=== PATIENT | female | born 1975 | race Caucasian/White ===

== ENCOUNTER → 2018-11-02 | Outpatient (CLI) | payer BC ==
--- NOTE | 2018-11-05 10:24 | MM ---
Reason for exam: screening (asymptomatic). Last mammogram was performed 2 years and 6 months ago. History: Took hormonal contraceptives for 5 years. Physical Findings: A clinical breast exam by your physician is recommended on an annual basis and results should be correlated with mammographic findings. MG 3D Screening Mammo W/Cad Bilateral CC, MLO, and XCCL view(s) were taken. Prior study comparison: April 24, 2016, bilateral MG screening mammo w CAD. November 01, 2014, bilateral MG screening mammo w CAD. The breast tissue is heterogeneously dense. This may lower the sensitivity of mammography. There is chronic nodularity in the right breast. No significant changes when compared with prior studies. ASSESSMENT: Negative, BI-RAD 1 RECOMMENDATION: Routine screening mammogram of both breasts in 1 year.
== END | disposition home or self-care (01) ==
LOC: RADMAMWWP 09:57
PROVIDERS: ATTEND Obstetrics & Gynecology
DX: Z12.31 Encounter for screening mammogram for malignant neoplasm of breast (principal)
CPT/HCPCS: 77063; 77067

== ENCOUNTER → 2019-10-04 | Outpatient (CLI) | payer BC ==
--- NOTE | 2019-10-05 09:09 | US ---
EXAMINATION TYPE: US pelvis complete transvag DATE OF EXAM: 10/04/2019 COMPARISON: NONE CLINICAL HISTORY: N93.8 abnormal uterine and vaginal bleeding. Abnormal bleeding TECHNIQUE: Transvaginal (TV) and Transabdominal (TA) . Transabdominal sonographic images of the pelvis were acquired. Transvaginal sonographic images were medically necessary to better assess the following anatomy: Uterus and ovaries. EXAM MEASUREMENTS: Uterus: 9.6 x 4.2 x 5.1 cm Endometrial Stripe: .6 cm Left Ovary: 3.8 x 2.3 x 2.4 cm 1. Uterus: Anteverted Fibroid visualized 4.1 x 4.0 x 3.7 cm. 2. Endometrium: wnl 3. Right Ovary: Obscured by overlying bowel gas 4. Left Ovary: Cystic area seen 2.2 x 1.8 x 2.0 cm. 5. Bilateral Adnexa: Right side fluid visualized question possible fallopian tubes. 6. Posterior cul-de-sac: wnl Heterogeneous anteverted uterus with poorly visualized endometrium that is not suspiciously thickened. Focal subserosal 3.7 cm fibroid some shadowing is noted towards the fundus. No free fluid in cul-de-sac. Left ovary is seen seen with 2.2 cm prominent follicle or simple-appearing thin-walled cyst left ovary. Right ovary not clearly identified with prominent tubular shaped structure could reflect hydrosalpinx. IMPRESSION: Uterine fibroid disease spell present. Tortuous tubular shaped structure right adnexa is suspicious for hydrosalpinx, consider further workup if there is localized right pelvic pain. MTDD
== END | disposition home or self-care (01) ==
LOC: RADUSWWP 16:26
PROVIDERS: ATTEND Obstetrics & Gynecology
DX: D25.9 Leiomyoma of uterus, unspecified (principal); R93.89 Abnormal findings on diagnostic imaging of other specified body structures
CPT/HCPCS: 76830; 76856

== ENCOUNTER → 2019-12-14 | Outpatient (CLI) | payer BC ==
--- NOTE | 2019-12-15 11:32 | MM ---
Reason for exam: screening (asymptomatic). Last mammogram was performed 1 year and 1 month ago. History: Took hormonal contraceptives for 5 years. Physical Findings: A clinical breast exam by your physician is recommended on an annual basis and results should be correlated with mammographic findings. MG 3D Screening Mammo W/Cad Bilateral CC and MLO view(s) were taken. XCCL view(s) were taken of the right breast. Prior study comparison: November 02, 2018, bilateral MG 3d screening mammo w/cad. April 24, 2016, bilateral MG screening mammo w CAD. The breast tissue is heterogeneously dense. This may lower the sensitivity of mammography. No significant changes when compared with prior studies. ASSESSMENT: Benign, BI-RAD 2 RECOMMENDATION: Routine screening mammogram of both breasts in 1 year.
== END | disposition home or self-care (01) ==
LOC: RADMAMWWP 16:15
PROVIDERS: ATTEND Obstetrics & Gynecology
DX: Z12.31 Encounter for screening mammogram for malignant neoplasm of breast (principal)
CPT/HCPCS: 77063; 77067

== ENCOUNTER → 2020-12-28 | Outpatient (CLI) | payer BC ==
--- NOTE | 2021-01-01 09:54 | MM ---
Reason for exam: screening (asymptomatic). Last mammogram was performed 1 year ago. History: Took hormonal contraceptives for 5 years. Physical Findings: A clinical breast exam by your physician is recommended on an annual basis and results should be correlated with mammographic findings. MG 3D Screening Mammo W/Cad Bilateral CC and MLO view(s) were taken. Prior study comparison: December 14, 2019, bilateral MG 3d screening mammo w/cad. November 02, 2018, bilateral MG 3d screening mammo w/cad. The breast tissue is heterogeneously dense. This may lower the sensitivity of mammography. No significant changes when compared with prior studies. ASSESSMENT: Benign, BI-RAD 2 RECOMMENDATION: Routine screening mammogram of both breasts in 1 year.
== END | disposition home or self-care (01) ==
LOC: RADMAMWWP 16:11
PROVIDERS: ATTEND Obstetrics & Gynecology
DX: Z12.31 Encounter for screening mammogram for malignant neoplasm of breast (principal)
CPT/HCPCS: 77063; 77067

== ENCOUNTER → 2023-09-03 | Outpatient (CLI) | payer BC ==
--- NOTE | 2023-09-03 15:42 | P.SLEEP ---
History of Present Illness DATE: 09/03/2023 CONSULTATION/NEW PATIENT EVALUATION HISTORY OF PRESENT ILLNESS/SLEEP-WAKE EVALUATION: 48-year-old lady had been ev aluated in the sleep center for excessive daytime sleepiness and possible obstructive sleep apnea hypopnea syndrome. SLEEP SCHEDULE: Usually sleep schedule from 10 PM to 6 AM on weekdays and from 10 PM to 7 AM on weekend. FALLING ASLEEP: Usually no problems with falling asleep. DURING SLEEP: Patient snores and may occasionally wakes up from sleep No history of hypnogogical hallucinations, sleep paralysis, or cataplexy. DURING THE DAY/WAKE STATE: In the morning patient wake up tired, has difficulties with concentration. [place] sleepiness scale is increased to 10. Patient does not take naps during the day because she is busy and working, but in the evening sometimes falling asleep in front of TV and possibly would be able to fall asleep during the day she will have opportunity to do it. PAST MEDICAL HISTORY: Back problems, hypothyroidism, sinuses problems. PAST SURGICAL HISTORY: None. MEDICATIONS: Levothyroxine 100 g once a day, control pills. SOCIAL HISTORY: Positive history of short smoking in the past, quit 25 years ago, alcohol consumption occasional. FAMILY HISTORY: Positive for sleep apnea, hypertension, sinuses problems, restless legs. REVIEW OF SYSTEMS: Snoring, feeling tiredness and sleepiness during the day. No fevers. No double vision. No recent chest pain. No shortness of breath. No abdominal pain. No bleeding episodes. No blood in urine. No seizure episodes. PHYSICAL EXAMINATION: GENERAL: A pleasant patient without any distress. VITAL SIGNS: BP 119/82, HR 80, RR 16, weight 227.2 pounds, height 6 foot 1.5 inches, body mass index 29.5. HEENT: PERRLA, EOMI. Evaluation of oropharynx showed tongue protrudes midline, low position of soft palate Mallampati 3. NECK: Supple. No JVD. Thyroid is not palpable. 16.5 inches in circumference. LUNGS: Clear to percussion and to auscultation. Good air exchange. No wheezing or rhonchi. HEART: S1, S2 regular. No murmurs, gallops or rubs. ABDOMEN: Soft and nontender. Bowel sounds are present. No organomegaly appreciated. EXTREMITIES: No clubbing or cyanosis. SHAPE CARVER: Awake, alert, and oriented x3. Cranial nerves 2 to 7 intact. There is no fasciculation or atrophy noted. No focal deficits observed. ASSESSMENT: 1. Snoring, low position of soft palate Mallampati 3, white neck 16.5 inches in circumference, sleepiness. Obstructive sleep apnea hypopnea syndrome. 2. Hypothyroidism. 3. Back problems. 4. Sinuses problems. PLAN: 1. Home sleep apnea test for evaluation of patient's breathing during sleep. 2. Following plan after reading sleep study. We may consider multiple sleep latency test if sleep study is negative for OMARI. 3. Preferable position during sleep on the side. 4. No driving if patient feels any sleepiness. Patient is aware of civil and criminal liability for unsafe driving. 5. Sleep hygiene with regular sleep time for at least 7.5-8 hours. 6. Watching weight. Thank you very much for referring this patient for consultation. Sincerely, Milton Apple MD, PhD, FAASM. Diplomat of [place] [employer], Sleep Medicine Board by [place] [employer] [place] [employer] Motor Scooter Repairer of [facility] [place] Sleep Note - Sleep Note Sleep Note: Temperature: Pulse Rate: Respiratory Rate: Blood Pressure: SpO2: Height: Weight: BMI: Neck Circumference:
== END ==
LOC: 3 N SLEEP 14:59
PROVIDERS: ATTEND Internal Medicine
DX: G47.33 Obstructive sleep apnea (adult) (pediatric) (principal); E03.9 Hypothyroidism, unspecified; M51.9 Unspecified thoracic, thoracolumbar and lumbosacral intervertebral disc disorder; J34.89 Other specified disorders of nose and nasal sinuses; Z87.891 Personal history of nicotine dependence; Z79.890 Hormone replacement therapy
CPT/HCPCS: 99211

== ENCOUNTER → 2023-09-19 | Outpatient (CLI) | payer BC | LOC: 3 N SLEEP 13:00 | PROVIDERS: ATTEND Internal Medicine | DX: G47.33 Obstructive sleep apnea (adult) (pediatric) (principal) ==

== ENCOUNTER → 2023-11-20 | Outpatient (CLI) | payer BC ==
--- NOTE | 2023-11-20 18:50 | P.PN ---
Subjective DATE: 11/20/2023 FOLLOW UP VISIT. Patient with obstructive sleep apnea hypopnea syndrome return to sleep center for follow-up visit. Recently patient had sleep study which documented obstructive sleep apnea hypopnea syndrome. Patient was initiated on PAP therapy and today is first visit after treatment was started. Patient was able to use PAP equipment every night for the whole night. Patient has difficulties with using CPAP equipment. Presently she is using nasal mask. [place] sleepiness scale is increased to 11. I checked information from PAP unit. PAP unit pressure 5-14, average 10.6 cm H2O. Usage is 20% and 17 % for more then 4 hours, average 4.8 hours per night. Leak is 3.0 l/m, which is in acceptable range. Apnea Hypopnea Index is slightly increased to 7.4l. MEDICATIONS:1. Levothyroxine 100 g once a day During physical exam: GENERAL: A pleasant patient without any distress. VITAL SIGNS: BP 129/88, HR 76, RR 16, weight 234, temperature 98.1, oxygen saturation at room air 99%. HEENT: PERRLA, EOMI.low position of soft palate, Mallapati 3 . NECK: Supple. No JVD. LUNGS: Clear to percussion and to auscultation. Good air exchange. No wheezing or rhonchi. HEART: S1, S2 regular. ABDOMEN: Soft and nontender.[] EXTREMITIES: No clubbing or cyanosis. SCALE MECHANIC: Awake, alert, and oriented x3. No focal deficit. Impressions: 1. Obstructive sleep apnea-hypopnea syndrome. Patient has difficulties with usage CPAP equipment. Patient feels that mask is not comfortable for her. 2. Hypothyroidism. 3. Sinusitis problems. 4. Back problems. Plan: 1. Continue using PAP equipment every night for the whole night. 2. To change air filter at least 1-2 times per month. 3. PAP unit should stay lower then position of the head. 4. Advised patient to remove all remaining water from humidifier canister daily and make it dry after each usage. Refill canister with fresh distilled water before each usage. 5. Sleep hygiene with regular time in bed for at least 8 hours. 6. Precautions related to driving. No driving if feel any sleepiness. 7. Prescription for trial with nasal pillow mask. 8. Follow up visit in 2 months or earlier if patient has any problems. 9. Watching weight. Thank you very much for allowing me to participate in the management of your patient. Milton Apple MD, PhD, FAASM. Diplomat of [place] [employer], Sleep Medicine Board by [place] [employer] Serologist of [facility] [place]
== END ==
LOC: 3 N SLEEP 16:25
PROVIDERS: ATTEND Internal Medicine
DX: G47.33 Obstructive sleep apnea (adult) (pediatric) (principal); E03.9 Hypothyroidism, unspecified; J32.9 Chronic sinusitis, unspecified; Z79.890 Hormone replacement therapy; Z99.89 Dependence on other enabling machines and devices
CPT/HCPCS: 99212

== ENCOUNTER → 2024-01-09 | Outpatient (CLI) | payer BC ==
--- NOTE | 2024-01-12 20:19 | MM ---
Reason for Exam: Screening (asymptomatic). Last mammogram was performed 1 year(s) and 11 month(s) ago. Patient History: Menarche at age 10. First Full-Term at age 21. Perimenopausal. Currently using Hormonal Contraceptives, for 5 years. Risk Values: Myrtle 5 year model risk: 0.9%. NCI Lifetime model risk: 8.0%. Prior Study Comparison: 12/14/2019 Bilateral Screening Mammogram, [facility]. 12/28/2020 Bilateral Screening Mammogram, [facility]. 02/07/2022 Bilateral Screening Mammogram, [facility]. Tissue Density: The breasts are heterogeneously dense, which may obscure small masses. Findings: Analyzed By CAD. There is no suspicious group of microcalcifications or new suspicious mass in either breast. Overall Assessment: Negative, BI-RAD 1 Management: Screening Mammogram of both breasts in 1 year. . Patient should continue monthly self-breast exams. A clinical breast exam by your physician is recommended on an annual basis. This exam should not preclude additional follow-up of suspicious palpable abnormalities. Note on Myrtle scores and lifetime risk: 1. A Myrtle score greater than 3% is considered moderate risk. If this is the case, consider specialist referral to assess eligibility for a risk reducing agent. 2. If overall lifetime risk for the development of breast cancer is 20% or higher, the patient may qualify for future screening with alternating mammogram and breast MRI. Electronically signed and approved by: Saul Grimm M.D. Radiologist
== END | disposition home or self-care (01) ==
LOC: RADMAMWWP 10:36
PROVIDERS: ATTEND Obstetrics & Gynecology
DX: Z12.31 Encounter for screening mammogram for malignant neoplasm of breast (principal)
CPT/HCPCS: 77063; 77067

== ENCOUNTER → 2024-07-29 | Outpatient (CLI) | payer BC ==
[2024-07-29 16:48] VITALS: BP 136/89; PULSE 67; RESP 12; TEMP 98
--- NOTE | 2024-07-29 17:46 | P.PROGSL ---
Subjective DATE: 07/29/2024 FOLLOW UP VISIT. Patient returned to sleep center for follow-up visit. Patient had been diagnosed with obstructive sleep apnea hypopnea syndrome by home sleep apnea test. Patient tried to use CPAP equipment but she has difficulties related to the mask, pressure and cannot use CPAP equipment. She came to discuss other possible options for treatment of obstructive sleep apnea hypopnea syndrome. [place] sleepiness scale is increased to 13 today. I discussed with patient in details other options for treatment of obstructive sleep apnea hypopnea syndrome including oral appliances, surgical treatment, using inspire electrical stimulator, losing weight. MEDICATIONS: Please see below During physical exam: GENERAL: A pleasant patient without any distress. VITAL SIGNS: Please see below. HEENT: PERRLA, EOMI. retrognathia several millimeters, extremely low position of soft palate Mallampati 3. NECK: Supple. No JVD. LUNGS: Clear to percussion and to auscultation. Good air exchange. No wheezing or rhonchi. HEART: S1, S2 regular. ABDOMEN: Soft and nontender. EXTREMITIES: No clubbing or cyanosis. STEAMBLASTER: Awake, alert, and oriented x3. No focal deficit. Impressions: 1. Obstructive sleep apnea hypopnea syndrome in mild range. Patient present with symptoms of excessive daytime sleepiness. [place] Sleepiness Scale increased to 13 today. Patient cannot tolerate CPAP treatment 2. Hypothyroidism. 3. History of sinusitis. 4. Back problems. 5. Mild obesity, BMI 30.3. Plan: 1. Patient was recommended to see dentist to start treatment of mild obstructive sleep apnea with oral appliances. 2. Sleep hygiene with regular time in bed for at least 8 hours. 3. Precautions related to driving. No driving if feel any sleepiness. Patient is aware about civil and criminal liability for unsafe driving, promised to follow recommendations. 4. Follow-up visit after patient will be started on treatment with oral appl iances repeat home sleep apnea test for evaluation of effectivity of treatment with oral appliances. 5. Watching and losing weight. Thank you very much for allowing me to participate in the management of your patient. Milton Apple MD, PhD, FAASM. Diplomat of [place] [employer], Sleep Medicine Board by [place] [employer] Master Black Belt of [facility] Objective - Vital Signs Vital Signs: Vital Signs Temp 98.0 F 07/29/24 16:47 Pulse 67 07/29/24 16:47 Resp 12 07/29/24 16:47 BP 136/89 07/29/24 16:47 Pulse Ox 97 07/29/24 16:47 FiO2 Intake & Output 07/28/24 07/29/24 07/29/24 18:59 06:59 18:59 Weight 107.161 kg
== END ==
LOC: 3 N SLEEP 16:03
PROVIDERS: ATTEND Internal Medicine
CPT/HCPCS: 99212

== ENCOUNTER → 2025-01-07 | Outpatient (CLI) | payer BC ==
--- NOTE | 2025-01-12 15:36 | P.PCN ---
Description of Procedure: CLINICAL: A home sleep apnea test has been done for confirmation of possible obstructive sleep apnea-hypopnea syndrome. DESCRIPTION OF PROCEDURE: RESULTS: Recording time was 8 hours 4 minutes. Evaluation time was 7 hours 52 minutes. Evaluation time is sufficient for making conclusion about results of the test. Raw data of sleep recording has been reviewed and is adequate. Respiratory channel showed 5 apneas and 15 hypopneas. Apnea-hypopnea index was 2 5 per hour. Pulse rate in the range between minimum 55, maximum 100, average 69 by computer calculation. Lowest desaturation was 88%. IMPRESSION: 1. No significant respiratory abnormalities have been documented during home sleep apnea test, which may underestimate severity of respiratory problems. Normal oxygenation during home sleep apnea test. Please see other impressions from consultation. PLAN: 1. I will see patient for follow-up visit to discuss results of the test and recommendations. 2. If patient continues symptoms of excessive daytime sleep we may consider multiple sleep latency test. 3. Watching weight. 4. Sleep hygiene with regular time in bed for at least 8 hours. 5. No driving if feeling any sleepiness. Thank you very much for allowing me to participate in the management of your patient. Sincerely, Milton Apple MD, PhD, FAASM Diplomat of [place] [employer] Sleep Medicine Board of [place] [employer] Medicine Makeup Instructor of [facility] [place] cc: Mart Umanzor MD
== END ==
LOC: 3 N SLEEP 13:29
PROVIDERS: ATTEND Internal Medicine
DX: G47.30 Sleep apnea, unspecified (principal)

== ENCOUNTER → 2025-02-04 | Outpatient (CLI) | payer BC ==
--- NOTE | 2025-02-07 07:42 | MM ---
Reason for Exam: Screening (asymptomatic). Last mammogram was performed 1 year(s) and 1 month(s) ago. Patient History: Menarche at age 10. First Full-Term at age 21. Perimenopausal. Patient used Hormonal Contraceptives for 5 years. Currently using Estrogen and Progesterone, for 2 months. Last menstrual period: 01/24/2025 Risk Values: Myrtle 5 year model risk: 0.9%. NCI Lifetime model risk: 7.9%. Prior Study Comparison: 12/28/2020 Bilateral Screening Mammogram, [facility]. 02/07/2022 Bilateral Screening Mammogram, [facility]. 01/09/2024 Bilateral MG 3D screening mammo w/cad, [facility]. Tissue Density: The breasts are heterogeneously dense, which may obscure small masses. Findings: Analyzed By CAD. Unchanged asymmetric density posterior superior right MLO view. Chronic nodularity lateral posterior right breast. There is no suspicious group of microcalcifications or new suspicious mass in either breast. Overall Assessment: Benign, BI-RAD 2 Management: Screening Mammogram of both breasts in 1 year. Patient should continue monthly self-breast exams. A clinical breast exam by your physician is recommended on an annual basis. This exam should not preclude additional follow-up of suspicious palpable abnormalities. Note on Myrtle scores and lifetime risk: 1. A Myrtle score greater than 3% is considered moderate risk. If this is the case, consider specialist referral to assess eligibility for a risk reducing agent. 2. If overall lifetime risk for the development of breast cancer is 20% or higher, the patient may qualify for future screening with alternating mammogram and breast MRI. [facility], , 02/07/2025 7:38 AM. Electronically signed and approved by: Saul Grimm M.D. Radiologist
== END | disposition home or self-care (01) ==
LOC: RADMAMWWP 16:02
PROVIDERS: ATTEND Obstetrics & Gynecology
DX: Z12.31 Encounter for screening mammogram for malignant neoplasm of breast (principal); R92.333 Mammographic heterogeneous density, bilateral breasts; Z92.0 Personal history of contraception
CPT/HCPCS: 77063; 77067

== ENCOUNTER → 2025-04-26 | Day surgery (SDC) | payer BC ==
[2025-04-25 09:25] VITALS: BMI 29.1
[~2025-04-26] MED LIST: LIDOCAINE 1% (10MG/ML) FOR IV START INTRADERMA PRN; PROPOFOL 10 MG/ML 20 ML VIAL IV ONE
[2025-04-26] MEDS: IV FLUID CONTINUATION 1,000 ML IV ONE ×2 (09:52→10:14)
[2025-04-26 10:05] VITALS: RESP 16; TEMP 98.1
[2025-04-26] MEDS: LACTATED RINGERS 1,000 ML IV SCH (10:14)
--- NOTE | 2025-04-26 10:41 | P.PCN ---
Date of Procedure: 04/26/25 Procedure(s) Performed: BRIEF HISTORY: Patient is a 49-year-old pleasant white female scheduled for an elective colonoscopy as a part of screening for colon cancer. PROCEDURE PERFORMED: Colonoscopy with snare polypectomy and Endo Clip placement. PREOPERATIVE DIAGNOSIS: Screening for colon cancer. IV sedation per Anesthesia. PROCEDURE: After informed consent was obtained, the patient, was brought into the endoscopy unit. IV sedation was administered by Anesthesia under continuous monitoring. Digital rectal examination was normal. Initially the Olympus CF-160 flexible video colonoscope was then inserted in the rectum, gradually advanced into the cecum without any difficulty. Careful examination was performed as the scope was gradually being withdrawn. Ileocecal valve and the appendiceal orifice were visualized and appeared normal. Prep was excellent. Mucosa of the cecum, appeared normal. The proximal ascending colon at the junction with the cecum there was a 2.5 cm broad-based polyp that was removed by piecemeal snare polyp and complete polypectomy accomplished. Rest of the ascending colon, transverse colon, descending colon, sigmoid colon, and rectum appeared normal. Retroflexion was performed in the rectum and no lesions were seen. The patient tolerated the procedure well. IMPRESSION: 2.5 cm broad-based ascending colon polyp at the junction of the cecum status post piecemeal snare polypectomy followed by Endo Clip placement and complete polypectomy accomplished Rest of the colon appeared normal RECOMMENDATIONS: Findings of this examination were discussed with the patient as well as the family. She was advised to follow-up with the biopsy results. If the biopsy reveals adenoma, recommended repeat colonoscopy in 1 year.
[2025-04-26 11:07] VITALS: BP 111/76; PULSE 68
== END ==
LOC: ORWHC2ENDO 09:22
PROVIDERS: ATTEND Internal Medicine Gastroenterology
DX: Z12.11 Encounter for screening for malignant neoplasm of colon (principal); D12.2 Benign neoplasm of ascending colon; E03.9 Hypothyroidism, unspecified; G47.33 Obstructive sleep apnea (adult) (pediatric); F17.200 Nicotine dependence, unspecified, uncomplicated; Z99.89 Dependence on other enabling machines and devices; Z79.890 Hormone replacement therapy
CPT/HCPCS: 81025; 88305; 45385; J2704